=== PATIENT | female | born 1945 | race Caucasian/White ===

== ENCOUNTER 2017-01-26 21:17 | Emergency (ER) | payer MEDICARE ==
[~2017-01-26 21:17] MED LIST: L20 PO; LAM250 PO; PRILO PO; ZESTORETIC PO
== END 2017-01-26 21:26 | disposition home or self-care (01) ==
LOC: ER 21:17
DX: M54.14 Radiculopathy, thoracic region (principal); I10 Essential (primary) hypertension; K21.9 Gastro-esophageal reflux disease without esophagitis; Z87.442 Personal history of urinary calculi; Z90.89 Acquired absence of other organs; Z88.0 Allergy status to penicillin; Z79.899 Other long term (current) drug therapy
CPT/HCPCS: 71020; 72072; 93005; 99283